=== PATIENT | male | born 1975 | race Caucasian/White ===

== ENCOUNTER 2024-01-15 00:17 | Emergency (ER) | payer OTHER, SELFPAY ==
[2024-01-15 00:21] VITALS: BP 132/74
--- NOTE | 2024-01-15 01:25 | ED.GENMED ---
History of Present Illness
General
Chief Complaint: Skin Problem
Source: patient
Time Seen by Provider: 01/15/24 01:04
Travel History
Have you had any contact with someone who has COVID-19?: No
Do you have any symptoms of coronavirus? Fever > 100 degrees, chills, cough, shortness of breath, sore throat, loss of taste or smell, muscle aches, or headache?: No
History of Present Illness
History of Present Illness:
48-year-old male presents to the emergency room complaining of pain, swelling left index finger. Patient is right-hand dominant. Patient states he began having a small area of redness and swelling 3 to 4 days ago. Area is on the dorsal surface of
the index finger over the proximal phalanx. Area has become quite red, painful. His family doctor started him on Bactrim without any improvement.
Past History
Past History
ED Past Medical History: None
ED Past Surgical History: None
Patient has exhibited threatening behavior?: No
Social History
Living: with family
Employment: Employed
Phy Exam
Physical Exam
Physical Exam:
General: Awake, Alert, Oriented X3. No acute distress.
Vitals: unremarkable
Head: Atraumatic
Eyes: Pupils equal, EOMI
Neck: Trachea midline
Neuro: Nonfocal
Skin: Warm, dry, no rash
Extremities: pulses equal b/l, no edema. Left index finger has a approximately 2 cm x 1 cm area of erythema with central pointing.
Course
Orders/Labs/Results
Orders:
Orders
01/15/24 00:29
Finger(s)/Thumb 2 View Lt [CR Finger(s)/thumb Min 2 Vw Lt] Urgent
Comment:
Reason For Exam: infection, swelling, redness prox. L index finger
01/15/24 01:23
Oxycodone [Roxicodone] 5 mg PO NOW STA
Vital Signs
Initial and Last Documented VS:
Initial Vital Signs
Temp Pulse Resp BP Pulse Ox
97.9 F 64 16 132/74 99
01/15/24 00:21 01/15/24 00:21 01/15/24 00:21 01/15/24 00:21 01/15/24 00:21
Last Documented Vital Signs
Temp Pulse Resp BP Pulse Ox
97.9 F 64 16 132/74 99
01/15/24 00:21 01/15/24 00:21 01/15/24 00:21 01/15/24 00:21 01/15/24 00:21
Procedures
Incision/Drainage/Joint Aspiration
Left Proximal Dorsal Second Finger:
Anethesia: 1% Lidocaine
Preparation: cleaned with Betadine
Type of procedure: incise and drain
Nature of site: abscess
Description of abscess: less than 3cm
How much fluid was obtained?: small amount
Fluid description: purulent
Treatment: left open for drainage
MDM/Problems Addressed
Differential Diagnosis Includes:
Retained foreign body, abscess, cellulitis
MDM/Problems Addressed:
I&D performed and a small amount of purulent material was expressed from the wound. Dressing applied. Continue antibiotics.
*Radiology
Radiology exam reviewed: preliminary read by ED provider (Personally reviewed patient's index finger x-ray and see no retained foreign body or fracture. Proximal digit does seem to be small)
*Pulse Oximetry
Patient hypoxic: no
*Critical Care Note
Total Time (30-74mins, 75-104mins- exclusive of procedures): Not Applicable
ED Attending Note
-
Portions of this chart may have been created with voice recognition software.� Occasional wrong word or��sound alike� substitutions may have occurred due to the inherent limitations of voice recognition software.
Discharge Plan
Departure
Patient Disposition: Home (Routine Discharge)
Date of Disposition: 01/15/24
Time of Disposition: 01:25
Patient with high blood pressure during this ER visit?: No
Condition: Good
Discharge Problem:
Abscess of left index finger
Instructions: Skin Abscess
Prescriptions:
No Action
amoxicillin-pot clavulanate 1 TABLET tablet
1 tab PO Q12 Qty: 19 0RF
Referrals:
Tyler Townsend MD [Active] -
Interventions
Interventions:
*Risk Screen - Suicide Last Done: 01/15/24 00:21
*General Assessment Last Done: 01/15/24 00:21
*Neglect/Abuse Screening Last Done: 01/15/24 00:21
ED- Fall Risk Assessment Last Done: 01/15/24 00:21
*ED COVID-19 Vaccine History Last Done: 01/15/24 00:21
Discharge Date and Time
Print Language: SWEDISH
[2024-01-15] MEDS: ROXICODONE 5 MG PO (01:32)
[2024-01-15 01:41] VITALS: BMI 23.6
[2024-01-15 01:44] VITALS: BP 122/81
== END 2024-01-15 01:51 | disposition home or self-care (01) ==
LOC: EMR 00:17
PROVIDERS: EMERGENCY PHYSICIAN Emergency Medicine
DX: L02.512 Cutaneous abscess of left hand (principal)
CPT/HCPCS: 99283; 10060; 73140

== ENCOUNTER 2024-01-18 11:07 | Emergency (ER) | payer OTHER, SELFPAY ==
[2024-01-18 11:24] VITALS: BP 137/77
[2024-01-18 11:29] VITALS: BMI 24.4
--- NOTE | 2024-01-18 12:53 | ED.GENMED ---
History of Present Illness
General
Chief Complaint: Skin Problem
Time Seen by Provider: 01/18/24 11:45
Travel History
Have you had any contact with someone who has COVID-19?: No
Do you have any symptoms of coronavirus? Fever > 100 degrees, chills, cough, shortness of breath, sore throat, loss of taste or smell, muscle aches, or headache?: No
History of Present Illness
History of Present Illness:
28-year-old male presents the emergency department for evaluation of recurrent left index finger abscess. Was seen in this emergency department 3 days ago where I&D was performed with limited purulent discharge. He is taking Bactrim since that
time. No fevers or chills
Past History
Past History
ED Past Medical History: None
ED Past Surgical History: None
Patient has exhibited threatening behavior?: No
Social History
Living: with family
Employment: Employed
Review of Systems
Review of Systems
Allergies reviewed?: Yes
All Other Systems: ROS reviewed and negative except as documented in HPI and ROS
Phy Exam
Physical Exam
Physical Exam:
GEN: Well appearing, NAD, WDWN
HEENT: Oral mucosa moist, no scleral icterus
Cardiac: Regular rate
Lung: No respiratory distress, no tachypnea
MSK: No gross deformity or injuries
Skin: Good color, no pallor or jaundice, no rashes. There is a 1 cm fluctuant abscess to the extensor surface of the proximal phalanx of the left index finger, no pain with passive extension or flexion
Neuro: AO x3, moves all extremities freely
Psych: Calm, cooperative
Course
Vital Signs
Initial and Last Documented VS:
Initial Vital Signs
Temp Pulse Resp BP Pulse Ox
97.8 F 70 16 137/77 98
01/18/24 11:24 01/18/24 11:24 01/18/24 11:24 01/18/24 11:24 01/18/24 11:24
Last Documented Vital Signs
Temp Pulse Resp BP Pulse Ox
97.8 F 70 16 137/77 98
01/18/24 11:24 01/18/24 11:24 01/18/24 11:24 01/18/24 11:24 01/18/24 11:24
Procedures
Incision/Drainage/Joint Aspiration
Left Second Finger:
Anethesia: 1% Lidocaine with Epi
Preparation: cleaned with alcohol wipe
Type of procedure: incise and drain
Nature of site: abscess
Description of abscess: less than 3cm
Loculations broken up: Yes
How much fluid was obtained?: small amount
Fluid description: purulent
Treatment: left open for drainage
MDM/Problems Addressed
MDM/Problems Addressed:
Bedside I&D was performed with good results. Will maintain current antibiotic therapy. Recommend outpatient hand surgery follow-up
*Critical Care Note
Total Time (30-74mins, 75-104mins- exclusive of procedures): Not Applicable
ED Attending Note
-
Portions of this chart may have been created with voice recognition software.� Occasional wrong word or��sound alike� substitutions may have occurred due to the inherent limitations of voice recognition software.
Discharge Plan
Departure
Patient Disposition: Home (Routine Discharge)
Date of Disposition: 01/18/24
Time of Disposition: 12:54
Patient with high blood pressure during this ER visit?: No
Discharge Problem:
Abscess of left index finger
Instructions: Skin Abscess
Prescriptions:
No Action
amoxicillin-pot clavulanate 1 TABLET tablet
1 tab PO Q12 Qty: 19 0RF
Referrals:
Edilson Liu DO [Family Provider] -
Tan Mcmahon MD [Active] -
Activity Restrictions/Additional Instructions:
Soak the wound in warm water with epsom salts at least twice daily
Wash with soap and water before re-dressing the wound
Follow up with hand surgery this week for re-evaluation
Continue the Augmentin as prescribed
Interventions
Interventions:
*General Assessment Last Done: 01/18/24 13:09
*ED COVID-19 Vaccine History Last Done: 01/18/24 11:24
*Nursing Disposition Last Done: 01/18/24 13:09
ED-Skin Assessment Last Done: 01/18/24 11:30
Discharge Date and Time
Discharge Date/Time: 01/18/24 13:09
Print Language: SPANISH
== END 2024-01-18 13:09 | disposition home or self-care (01) ==
LOC: EMR 11:07
PROVIDERS: EMERGENCY PHYSICIAN Emergency Medicine; FAMILY PHYSICIAN Internal Medicine
DX: L02.512 Cutaneous abscess of left hand (principal)
CPT/HCPCS: 99282; 26010